=== PATIENT | male | born 1980 | race Caucasian/White ===

== ENCOUNTER 2024-08-03 20:04 | Emergency (ER) | payer OTHER, SELFPAY ==
[2024-08-03 20:01] VITALS: BP 173/124; PULSE 106; RESP 20; TEMP 36.4; O2SAT 95
--- NOTE | 2024-08-03 20:13 | ECG_ITS ---
Test Date: 2024-08-03 20:58:53 Measurements Intervals [place] Rate: 95 P: 48 MD: 160 QRS: -17 QRSD: 98 T: 103 QT: 363 QTc: 458 Interpretive Statements SINUS RHYTHM ST DEVIATION AND MODERATE T-WAVE ABNORMALITY, CONSIDER HIGH LATERAL ISCHEMIA ABNORMAL ECG No previous ECG available for comparison Electronically Signed On 08-04-2024 06:54:32 TUGGER OPERATOR by Luis Armas D.O.
[2024-08-03 20:30] LABS: Basophils Absolute Auto 0.1 K/mm3 (0.0-0.1); Eosinophils Absolute Auto 0.4 K/mm3 (0-0.3); Eosinophils Percent Auto 4.1 % (0-4.4); Hematocrit 45.5 % (42.0-52.0); Hemoglobin 16.2 g/dL (14.0-18.0); Immature Granulocyte Absolute 0.03 K/mm3 (0.00-0.031); Immature Granulocyte Percent A 0.3 % (0-0.5); Lymphocytes Absolute Auto 3.29 K/mm3 (0.9-3.2); Lymphocytes Percent Auto 37.4 % (18.3-44.2); Mean Corpuscular HGB Conc 35.6 g/dl (32-36); Mean Corpuscular Hemoglobin 33.4 pg (26-34); Mean Corpuscular Volume 93.8 fl (80-100); Mean Platelet Volume 10.3 fl (7.4-10.4); Monocytes Absolute Auto 0.6 K/mm3 (0.1-0.6); Monocytes Percent Auto 6.3 % (2.6-8.5); Neutrophils Absolute Auto 4.5 K/mm3 (1.3-6.7); Neutrophils Percent Auto 50.9 % (45.5-73.1); Platelet Count Result 303 k/mm3 (150-375); Red Blood Count 4.85 M/mm3 (4.6-6.20); Red Cell Distribution Width 12.7 % (11.5-14.5); White Blood Count 8.8 K/mm3 (4.5-10.0)
[2024-08-03 20:41] LABS: Acetaminophen < 10 ug/mL (10-30); Ethanol 238 mg/dL (<10); Salicylate < 1.0 mg/dL (2-20)
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
[2024-08-03 21:00] VITALS: PULSE 102
[2024-08-03 21:08] LABS: Alanine Aminotransferase 22 U/L (6-50); Albumin Level 4.4 g/dL (3.5-5.1); Alkaline Phosphatase 76 U/L (38-126); Anion Gap 12 mmol/L (4-12); Aspartate Amino Transferase 41 U/L (17-59); Bilirubin,Total 0.4 mg/dL (0.2-1.3); Blood Urea Nitrogen 10 mg/dL (9-20); Calcium 8.7 mg/dL (8.4-10.2); Carbon Dioxide 26 mmol/L (22-30); Chloride 105 mmol/L (98-107); Estimated CRCL calculation 144 ml/min; Estimated Glomerular Filt Rate > 60; Glucose 182 mg/dL (65-110); Potassium 3.2 mmol/L (3.4-5.0); Sodium 143 mmol/L (137-145)
[2024-08-03 21:24] VITALS: BP 137/98; PULSE 95; RESP 19; O2SAT 98
[2024-08-03 21:33] VITALS: BP 139/80; PULSE 99; RESP 18; TEMP 36.5; O2SAT 96
== END 2024-08-03 21:55 | disposition home or self-care (01) ==
PROVIDERS: Emergency Provider Preventive Medicine Aerospace Medicine
DX: F43.11 Post-traumatic stress disorder, acute (principal); I10 Essential (primary) hypertension; F10.129 Alcohol abuse with intoxication, unspecified; Y90.7 Blood alcohol level of 200-239 mg/100 ml; F17.200 Nicotine dependence, unspecified, uncomplicated
CPT/HCPCS: 36415; 80053; 80143; 80179; 82077; 85025; 93005; 99284